=== PATIENT | male | born 1980 | race American Indian/Alaskan Native ===

== ENCOUNTER 2022-08-21 19:15 | Emergency (ER) | payer BC, OTHER ==
[~2022-08-21] VITALS: Ht 177.8 cm; Wt 97.5 kg
== END 2022-08-21 20:21 | disposition home or self-care (01) ==
LOC: ED 19:15
DX: S01.01XA Laceration without foreign body of scalp, initial encounter (principal); W22.8XXA Striking against or struck by other objects, initial encounter; Z23 Encounter for immunization
CPT/HCPCS: 12002; 90471; 90714; 99282-25

== ENCOUNTER 2024-01-15 07:50 | Emergency (ER) | payer OTHER, BC ==
[~2024-01-15] VITALS: Ht 177.8 cm; Wt 102.8 kg
[2024-01-15 08:55] VITALS: BP 137/97
== END 2024-01-15 08:55 | disposition home or self-care (01) ==
LOC: ED 07:50
DX: S81.811A Laceration without foreign body, right lower leg, initial encounter (principal); W27.0XXA Contact with workbench tool, initial encounter; Y93.89 Activity, other specified
CPT/HCPCS: 12002; 99282